=== PATIENT | male | born 1995 | race Caucasian/White ===

== ENCOUNTER 2022-04-30 10:33 | Emergency (ER) | payer OTHER, SELFPAY ==
[2022-04-30 10:36] VITALS: BP 138/75; PULSE 81; RESP 18; TEMP 36.6; O2SAT 98; BMI 29.9
--- NOTE | 2022-04-30 10:47 | ED.GENADULT ---
HPI - General Adult General Chief complaint: Psychiatric Symptoms Stated complaint: Psych eval Time Seen by Provider: 04/30/22 10:47 Source: patient Mode of arrival: ambulatory Limitations: no limitations History of Present Illness HPI narrative: Patient is a 26 year old assigned male at with a history of bipolar disorder presenting to the emergency department today with possible side effects of medication. Patient states that he was hospitalized in [place] and there he had some medication changes. Patient states that since then he has had a tremor and some increased anxiety. Patient denies any dizziness, lightheadedness, abdominal pain, nausea, vomiting, fever, chills, blurry vision, double vision, loss of vision, chest pain, difficulty breathing, shortness of breath, back pain, night sweats, pain with urination, increased urinary frequency, increased urinary urgency, blood in his urine or stool, syncope or a near syncopal episode, recent trauma or falls, bowel incontinence, bladder incontinence, bowel retention, bladder retention, or any other complaints at this time. Onset (ago): day(s) Severity: mild Severity scale (1-10): 2 Relieving factors: none Exacerbating factors: none Associated symptoms: denies other symptoms Treatments prior to arrival: none Related Data Home Medications Medication Instructions Recorded Confirmed divalproex 500 mg tablet,extended 1 tab PO BID 04/30/22 04/30/22 release 24 hr haloperidol 5 mg tablet 1 tab PO BID 04/30/22 04/30/22 olanzapine 10 mg disintegrating 1 tab QAM 04/30/22 04/30/22 tablet olanzapine 20 mg disintegrating 1 tab BEDTIME 04/30/22 04/30/22 tablet Previous Rx's Medication Instructions Recorded lactulose 20 gram/30 mL oral 20 g (30 mL) PO TID #180 mL 04/30/22 solution Allergies Allergy/AdvReac Type Severity Reaction Status Date / Time Unable to Assess Allergy Verified 04/30/22 10:48 Review of Systems Constitutional: Constitutional: Reports no additional constitutional complaints, Denies chills, Denies fever(s) and Denies night sweats Eyes: Eyes: Reports no additional eye complaints, Denies blurry vision, Denies change in vision, Denies diplopia, Denies eye discharge, Denies loss of vision and Denies eye pain ENT: Denies dizziness Cardiovascular: Cardiovascular: Reports no additional cardiovascular complaints, Denies chest pain, Denies lightheadedness, Denies Loss of Consciousness and Denies dyspnea Respiratory: Respiratory: Reports no additional respiratory complaints and Denies dyspnea Gastrointestinal: Gastrointestinal: Reports no additional gastrointestinal complaints, Denies abdominal pain, Denies melena, Denies hematochezia, Denies change in bowel habits and Denies change in stool character Genitourinary: Genitourinary: Reports no additional male genitourinary complaints, Denies hematuria, Denies oliguria, Denies difficulty urinating, Denies dysuria, Denies urinary frequency, Denies urinary hesitancy, Denies urinary incontinence and Denies urinary urgency Musculoskeletal: Musculoskeletal: Reports no additional musculoskeletal complaints, Denies numbness and Denies tingling Neurologic: Denies dizziness, Denies loss of vision, Denies numbness and Denies tingling Psychiatric: Psychiatric: Reports no additional psychiatric complaints and Reports anxiety Endocrine: Endocrine: Reports no additional endocrine complaints Hematologic/Lymphatic: Hematologic/Lymphatic: Reports no additional hematologic/lymphatic complaints Allergic/Immunologic: Allergic/Immunologic: Reports no additional allergic/immunologic complaints [facility] Past Medical History Attestation statement: The following information was validated with the patient. Source: old records reviewed and nursing notes reviewed Social History Social History Advance Directives: No Advance Directives Information Provided: No Guardian: No Physical Exam ED Vital Signs: Vital Signs - 24 hr 04/30/22 10:36 Temperature 98 F Pulse Rate 81 Respiratory Rate 18 Blood Pressure 138/75 Pulse Oximetry 98 Oxygen Delivery Method Room Air BMI result Body Mass Index 29.9 Const General: cooperative, no acute distress, alert and awake Nutritional Appearance: well nourished Orientation/consciousness: patient oriented x3 Limitations: no limitations [facility] Head: Yes normal to inspection and Yes atraumatic Ears: hearing grossly normal bilaterally and external ears normal General nose exam: Normal external nose present, no nasal discharge noted and no epistaxis Face and sinus: Yes normal facial exam, No abrasion and No laceration Mouth: Normal oral and palatal mucosa present, no drooling and no muffled voice Eyes General: appearance normal, both eyes and all related structures Periorbital: periorbital findings normal Eyelids: Yes eyelids normal Conjunctivae: conjunctivae normal Pupils: Equal, round and reactive pupils present EOM: EOMs intact bilaterally Neck Neck: Yes normal visual inspection, Yes full ROM and Yes no lymphadenopathy Chest Chest palpation & inspection: normal inspection of the chest Resp Effort & Inspection: normal respiratory effort and able to speak in complete sentences Auscultation: clear to auscultation bilaterally Cardio Rate: regular rate Rhythm: regular rhythm GI Inspection: Yes normal to inspection Palpation (GI): Soft to palpation, not firm, nontender, no guarding and not rigid Neuro General: patient oriented x3 and moves all extremities Cranial nerves: Yes Equal, round and reactive pupils present Cognition (Neuro): normal cognition Motor exam (neuro): 5/5 motor strength present throughout Sensory Exam: Normal double simultaneous stimulation for sensation Coordination: [id number] test normal Extrem General: Yes normal to inspection, Yes full ROM and Yes capillary refill normal Psych Appearance: grossly normal Mental Status: mental status grossly normal Affect: normal affect Attitude: cooperative Thought process: Normal thought process present Thought content: Normal thought content present Insight: Good insight present (Psych) Medications Administered Discontinued Medications Generic Name Dose Route Start Last Admin Trade Name Jess PRN Reason Stop Dose Admin Lactulose 20 gm 04/30/22 14:47 04/30/22 14:59 Lactulose 20 Gm/30 Ml Solution PO 04/30/22 14:48 20 gm ONCE ONE Administration Medical Decision Making Medical Decision Making [facility] Narrative: Patient is a 26 year old assigned male at with a history of bipolar disorder presenting to the emergency department today with a tremor and increased anxiety. Patient's physical exam was unremarkable. Patient's blood work showed slightly elevated LFTs and ammonia. Psychiatry met with the patient and recommended the patient stop the Depakote, follow up for additional LFTs and medication changes. Psychiatry states the patient will be entering a partial program in the coming days. I explained my physical exam findings as well as all test results to the patient. I answered all questions asked by the patient. I stressed the importance of the patient taking his medication as prescribed. I stressed the importance of the patient following up with his primary care provider. I stressed the importance of the patient returning to the emergency department immediately if his symptoms were to worsen or if he were to develop any dizziness, shortness of breath, difficulty breathing, chest pain, blurry vision, loss of vision, nausea, vomiting, abdominal pain, fever, chills, back pain, or any other complaints. Patient verbalized agreement and understanding with this treatment plan and discharge. Differential Diagnosis Differential Diagnoses: The differential diagnosis associated with the presentation includes anxiety, juanis, bipolar disorder Consult Healthcare Provider Management of the patient was discussed with: Logistics Loss Prevention Manager (spoke with the psychiatrist activities concierge who recommended cessation of depakote, follow up LFTs, and continuined partialization program) Lab Data MDM Lab Attestation statement: I reviewed the patient's lab results. 04/30/22 11:25 04/30/22 11:25 Labs: Lab Results 04/30/22 04/30/22 04/30/22 Range/Units 11:11 11:11 11:11 WBC (4.8-10.8) X10*3/uL RBC (4.60-5.80) X10*6/uL Hgb (14.0-18.0) g/dl Hct (42.0-52.0) % MCV (80.0-98.0) fL MCH (27.0-33.0) pg MCHC (31.0-36.0) g/dl RDW (11.0-16.0) % Plt Count (160-400) X10*3/uL MPV (9.4-12.4) fL Immature Gran % (Auto) (0.0-0.4) % Neut % (Auto) (45-73) % Lymph % (Auto) (20-40) % [place] % (Auto) (2-11) % Eos % (Auto) (0-4) % Baso % (Auto) (0-2) % Lymph # (Auto) (1.2-4.9) X10*3/uL [place] # (Auto) (0.1-1.2) X10*3/uL Eos # (Auto) (0.0-0.4) X10*3/uL Baso # (Auto) (0.0-0.2) X10*3/uL Abs Immat Gran (auto) (0.00-0.03) X10*3/uL Absolute Neuts (auto) (2.0-8.3) x10*3/uL Absolute Nucleated RBC (0.0-0.012) X10*3/uL Nucleated RBC % (auto) (0.0-0.2) /100WBC Sodium (135-145) mmol/L Potassium (3.3-5.1) mmol/L Chloride (96-108) mmol/L Carbon Dioxide (22-29) mmol/L Anion Gap (12-20) BUN (9-16) mg/dL Creatinine (0.5-1.4) mg/dL Estim Creat Clear Calc Estimated GFR Random Glucose (60-115) mg/dL Calcium (8.4-10.2) mg/dL Total Bilirubin (0.0-1.0) mg/dL AST (5-37) U/L ALT (0-40) U/L Alkaline Phosphatase (39-117) U/L Ammonia (13-55) umol/L Total Protein (6.5-8.0) g/dL Albumin (3.5-5.0) g/dL Urine Color Yellow Urine Appearance Clear Urine pH 6.5 (5.0-9.0) Ur Specific [place] 1.020 (1.005-1.025) Urine Protein Negative (Neg-Trace) mg/dL Urine Glucose (UA) Negative (Negative) mg/dL Urine Ketones Negative (Negative) mg/dL Urine Blood Negative (Negative) Urine Nitrite Negative (Negative) Ur Leukocyte Esterase Negative (Negative) Salicylates (15-30) mg/dL Urine Opiates Screen Not Detected (Not Detect) Urine Fentanyl Screen Not Detected (Not Detect) Acetaminophen (<30) mcg/mL Ur Barbiturates Screen Not Detected (Not Detect) Ur Phencyclidine Scrn Not Detected (Not Detect) Ur Amphetamines Screen Not Detected (Not Detect) U Benzodiazepines Scrn Not Detected (Not Detect) Urine Cocaine Screen Not Detected (Not Detect) U Marijuana (THC) Screen Not Detected (Not Detect) Ethyl Alcohol mg/dL COVID-19 (BESSIE) Negative (Negative) COVID-19 Clin Com See Note 04/30/22 04/30/22 04/30/22 Range/Units 11:25 11:25 13:59 WBC 7.9 (4.8-10.8) X10*3/uL RBC 5.04 (4.60-5.80) X10*6/uL Hgb 14.6 (14.0-18.0) g/dl Hct 42.7 (42.0-52.0) % MCV 84.7 (80.0-98.0) fL MCH 29.0 (27.0-33.0) pg MCHC 34.2 (31.0-36.0) g/dl RDW 12.6 (11.0-16.0) % Plt Count 209 (160-400) X10*3/uL MPV 8.9 L (9.4-12.4) fL Immature Gran % (Auto) 2.5 H (0.0-0.4) % Neut % (Auto) 57.8 (45-73) % Lymph % (Auto) 23.8 (20-40) % [place] % (Auto) 9.8 (2-11) % Eos % (Auto) 5.2 H (0-4) % Baso % (Auto) 0.9 (0-2) % Lymph # (Auto) 1.9 (1.2-4.9) X10*3/uL [place] # (Auto) 0.8 (0.1-1.2) X10*3/uL Eos # (Auto) 0.4 (0.0-0.4) X10*3/uL Baso # (Auto) 0.1 (0.0-0.2) X10*3/uL Abs Immat Gran (auto) 0.20 H (0.00-0.03) X10*3/uL Absolute Neuts (auto) 4.6 (2.0-8.3) x10*3/uL Absolute Nucleated RBC 0.000 (0.0-0.012) X10*3/uL Nucleated RBC % (auto) 0.0 (0.0-0.2) /100WBC Sodium 140 (135-145) mmol/L Potassium 4.3 (3.3-5.1) mmol/L Chloride 105 (96-108) mmol/L Carbon Dioxide 28 (22-29) mmol/L Anion Gap 11 L (12-20) BUN 17 H (9-16) mg/dL Creatinine 0.86 (0.5-1.4) mg/dL Estim Creat Clear Calc 176.5 Estimated GFR > 60 Random Glucose 94 (60-115) mg/dL Calcium 9.3 (8.4-10.2) mg/dL Total Bilirubin 0.7 (0.0-1.0) mg/dL AST 71 H (5-37) U/L ALT 172 H (0-40) U/L Alkaline Phosphatase 92 (39-117) U/L Ammonia 68 H (13-55) umol/L Total Protein 7.5 (6.5-8.0) g/dL Albumin 4.2 (3.5-5.0) g/dL Urine Color Urine Appearance Urine pH (5.0-9.0) Ur Specific [place] (1.005-1.025) Urine Protein (Neg-Trace) mg/dL Urine Glucose (UA) (Negative) mg/dL Urine Ketones (Negative) mg/dL Urine Blood (Negative) Urine Nitrite (Negative) Ur Leukocyte Esterase (Negative) Salicylates < 5.0 L (15-30) mg/dL Urine Opiates Screen (Not Detect) Urine Fentanyl Screen (Not Detect) Acetaminophen < 17 (<30) mcg/mL Ur Barbiturates Screen (Not Detect) Ur Phencyclidine Scrn (Not Detect) Ur Amphetamines Screen (Not Detect) U Benzodiazepines Scrn (Not Detect) Urine Cocaine Screen (Not Detect) U Marijuana (THC) Screen (Not Detect) Ethyl Alcohol < 10 mg/dL COVID-19 (BESSIE) (Negative) COVID-19 Clin Com Discharge Plan Discharge Clinical Impression: Bipolar 1 disorder, depressed, mild Patient Disposition: Home, Self-Care Instructions: Bipolar Disorder (ED) Additional Instructions: Follow up with your primary care provider and psychiatrist. Return to the emergency department immediately if your symptoms worsen or if you develop any dizziness, shortness of breath, difficulty breathing, chest pain, blurry vision, loss of vision, nausea, vomiting, abdominal pain, fever, chills, back pain, or any other complaints. Prescriptions: New lactulose 20 gram/30 mL solution 20 g PO TID Qty: 180 0RF No Action haloperidol 5 mg tablet 1 tab PO BID olanzapine 20 mg tablet,disintegrating 1 tab BEDTIME divalproex 500 mg tablet extended release 24 hr 1 tab PO BID olanzapine 10 mg tablet,disintegrating 1 tab QAM Referrals: [facility] [Provider Group] (Call to establish and follow up with a primary care provider. If you already have a primary care provider, please follow up with them. ) [facility] [place] [Provider Group] (Call to establish and follow up with a primary care provider. If you already have a primary care provider, please follow up with them. ) [facility] [Provider Group] (Call to establish and follow up with a primary care provider. If you already have a primary care provider, please follow up with them. ) Interventions: [place]-Suicide Risk Severity Scale Last Done: 04/30/22 13:37 ED Discharge Assessment Last Done: 04/30/22 15:19 Print Language: Malaysian
[2022-04-30 11:23] LABS: Appearance Urine Clear; Color Urine Yellow; Glucose Urine UA Negative (Negative); Leukocyte Esterase Urine Negative (Negative); Nitrite Urine Negative (Negative); PH 6.5 (5.0-9.0); Urine Blood Negative (Negative); Urine Ketones Negative (Negative); Urine Protein Negative (Neg-Trace)
[2022-04-30 11:28] LABS: MANUAL DIFF FLAG NO
[2022-04-30 11:30] LABS: Amphetamine Screen Urine Not Detected (Not Detect); Barbiturates, Urine Not Detected (Not Detect); Benzodiazepines Screen Urine Not Detected (Not Detect); Cannabinoid Screen Urine Not Detected (Not Detect); Cocaine Screen Urine Not Detected (Not Detect); Fentanyl, urine Not Detected (Not Detect); Opiate Screen Urine Not Detected (Not Detect); Phencyclidine Screen Urine Not Detected (Not Detect)
[2022-04-30 11:33] LABS: Basophils Absolute Auto 0.1 X10*3/uL (0.0-0.2); Basophils Percent Auto 0.9 % (0-2); Eosinophils Absolute Auto 0.4 X10*3/uL (0.0-0.4); Eosinophils Percent Auto 5.2 % (0-4); Hematocrit 42.7 % (42.0-52.0); Hemoglobin 14.6 g/dl (14.0-18.0); Imm Gran Pct Auto 2.5 % (0.0-0.4); Lymphocytes Absolute Auto 1.9 X10*3/uL (1.2-4.9); Lymphocytes Percent Auto 23.8 % (20-40); Mean Corpuscular HGB Conc 34.2 g/dl (31.0-36.0); Mean Corpuscular Volume 84.7 fL (80.0-98.0); Mean Platelet Volume 8.9 fL (9.4-12.4); Monocytes Absolute Auto 0.8 X10*3/uL (0.1-1.2); Monocytes Percent Auto 9.8 % (2-11); Neutrophils Absolute Auto 4.6 x10*3/uL (2.0-8.3); Neutrophils Percent Auto 57.8 % (45-73); Platelet Count 209 X10*3/uL (160-400); Red Blood Count 5.04 X10*6/uL (4.60-5.80); Red Cell Distribution Width 12.6 % (11.0-16.0); White Blood Count 7.9 X10*3/uL (4.8-10.8)
[2022-04-30 11:44] LABS: Anion Gap 11 (12-20)
[2022-04-30 11:49] LABS: COVID-19 Test Negative (Negative); IDNOW Serial# 55D5AD1C
[2022-04-30 11:53] LABS: Acetaminophen LAB < 17 mcg/mL (<30); Alanine Aminotransferase 172 U/L (0-40); Albumin Level 4.2 g/dL (3.5-5.0); Alkaline Phosphatase 92 U/L (39-117); Aspartate Amino Transferase 71 U/L (5-37); Bilirubin Total 0.7 mg/dL (0.0-1.0); Calcium 9.3 mg/dL (8.4-10.2); Carbon Dioxide 28 mmol/L (22-29); Chloride 105 mmol/L (96-108); Creatinine Clr Calc Pharmacy 176.5; Estimated Glomerular Filt Rate > 60; Ethanol < 10 mg/dL; Glucose Random 94 mg/dL (60-115); Potassium 4.3 mmol/L (3.3-5.1); Salicylate < 5.0 mg/dL (15-30); Sodium 140 mmol/L (135-145); Total Protein 7.5 g/dL (6.5-8.0)
[2022-04-30 12:39] LABS: Blood Urea Nitrogen 17 mg/dL (9-16)
--- NOTE | 2022-04-30 13:26 | P.CNPS_ITS ---
History of Present Illness Date of Service: 04/30/2022 Chief Complaint: Psych eval Reason for Consult: S/E medications Requesting physician: Nicol Wong Discussed with referring provider: Yes Sources of Information: patient interviewed, chart reviewed and crisis/core team assessment reviewed HPI Narrative: Mr. Scales is a 26 year-old male with hx of Bipolar type 1 Disorder. Pt had two episodes of juanis in last 6 months. One back in February, hospitalized at [facility] (discharged on depakote, haldol and olanzapine). He had medication changes by his OP provider Dr. Stevens, discontinuing depakote, haldol and olanzapine and starting vraylar. Pt had another manic episode in [place] this past March and was restarted on combination of depakote, haldol and olanzapine. In the ED- utox is negative. Pt presents to ED reporting overall shakiness, over sedation during the day. He has been taking depakote 500mg po BID, haldol 5mg po BID, olanzapine 10mg po daily and 20mg po qhs. Preliminary labs- shows elevated LFTs- AST 71, ALT 172, ammonia levels elevated at 68. Depakote level not obtained as pt had morning dose and it wouldn't be trough level. Renal function wnl. CBC with diff wnl. Pt presents as calm. No overt labile mood. No SI/HI. No overt signs of p sychosis. Mother is present during interview. She reports her main concern at this moment is possible side effects including over sedation along with overall shakiness- which is visible during my interview with pt. No overt cogwheel noted or rigidity. Past Psychiatric History: Inpatient: [facility] 01/2022; [facility]/[place], 03/2022 OP: looking for new psychiatrist but has been seeing Dr. Leiva. Past medication trials: depakote, haldol, lamictal, vraylar, olanzapine. Medical Evaluation Reviewed: Yes Diagnostics Vital Signs (24Hr): Vital Signs - 24 hr 04/30/22 10:36 Temperature 98 F Pulse Rate 81 Respiratory Rate 18 Blood Pressure 138/75 Pulse Oximetry 98 Oxygen Delivery Method Room Air BMI result Body Mass Index 29.9 Labs 04/30/22 11:25 04/30/22 11:25 Labs: Laboratory Results - last 48 hr 04/30/22 04/30/22 04/30/22 11:11 11:11 11:11 WBC RBC Hgb Hct MCV MCH MCHC RDW Plt Count MPV Immature Gran % (Auto) Neut % (Auto) Lymph % (Auto) [place] % (Auto) Eos % (Auto) Baso % (Auto) Lymph # (Auto) [place] # (Auto) Eos # (Auto) Baso # (Auto) Abs Immat Gran (auto) Absolute Neuts (auto) Absolute Nucleated RBC Nucleated RBC % (auto) Sodium Potassium Chloride Carbon Dioxide Anion Gap BUN Creatinine Estim Creat Clear Calc Estimated GFR Random Glucose Calcium Total Bilirubin AST ALT Alkaline Phosphatase Total Protein Albumin Urine Color Yellow Urine Appearance Clear Urine pH 6.5 Ur Specific [place] 1.020 Urine Protein Negative Urine Glucose (UA) Negative Urine Ketones Negative Urine Blood Negative Urine Nitrite Negative Ur Leukocyte Esterase Negative Salicylates Urine Opiates Screen Not Detected Urine Fentanyl Screen Not Detected Acetaminophen Ur Barbiturates Screen Not Detected Ur Phencyclidine Scrn Not Detected Ur Amphetamines Screen Not Detected U Benzodiazepines Scrn Not Detected Urine Cocaine Screen Not Detected U Marijuana (THC) Screen Not Detected Ethyl Alcohol COVID-19 (BESSIE) Negative COVID-19 Clin Com See Note 04/30/22 04/30/22 11:25 11:25 WBC 7.9 RBC 5.04 Hgb 14.6 Hct 42.7 MCV 84.7 MCH 29.0 MCHC 34.2 RDW 12.6 Plt Count 209 MPV 8.9 L Immature Gran % (Auto) 2.5 H Neut % (Auto) 57.8 Lymph % (Auto) 23.8 [place] % (Auto) 9.8 Eos % (Auto) 5.2 H Baso % (Auto) 0.9 Lymph # (Auto) 1.9 [place] # (Auto) 0.8 Eos # (Auto) 0.4 Baso # (Auto) 0.1 Abs Immat Gran (auto) 0.20 H Absolute Neuts (auto) 4.6 Absolute Nucleated RBC 0.000 Nucleated RBC % (auto) 0.0 Sodium 140 Potassium 4.3 Chloride 105 Carbon Dioxide 28 Anion Gap 11 L BUN 17 H Creatinine 0.86 Estim Creat Clear Calc 176.5 Estimated GFR > 60 Random Glucose 94 Calcium 9.3 Total Bilirubin 0.7 AST 71 H ALT 172 H Alkaline Phosphatase 92 Total Protein 7.5 Albumin 4.2 Urine Color Urine Appearance Urine pH Ur Specific [place] Urine Protein Urine Glucose (UA) Urine Ketones Urine Blood Urine Nitrite Ur Leukocyte Esterase Salicylates < 5.0 L Urine Opiates Screen Urine Fentanyl Screen Acetaminophen < 17 Ur Barbiturates Screen Ur Phencyclidine Scrn Ur Amphetamines Screen U Benzodiazepines Scrn Urine Cocaine Screen U Marijuana (THC) Screen Ethyl Alcohol < 10 COVID-19 (BESSIE) COVID-19 Clin Com Mental Status Exam Mental Status Exam Narrative: Appearance: wearing hospital gown, fair hygiene, in NAD Behavior: cooperative Speech: clear, normal rate/rhythm/volume, spontaneous TP: linear TC: no overt psychosis, worried about side effects, wanting to continue OP psych tx. Mood: sleepy Affect: congruent SI: none HI: none VH/AH: none Delusions: none Insight/judgment: fair x 2. Memory/cog: alert, oriented x 3. grossly intact to conversational testing. Medications Allergies Allergies Allergy/AdvReac Type Severity Reaction Status Date / Time Unable to Assess Allergy Verified 04/30/22 10:48 Assessment & Plan Assessment & Plan (1) Bipolar 1 disorder, depressed, mild: Status: Acute Code(s): F31.31 - Bipolar disorder, current episode depressed, mild Plan Mr. Scales is a 26 year-old male with hx of Bipolar Disorder type 1, with first manic episode in 2019. He has has had two other manic episodes one in Feb 20[facility], and another one in [place] 03/2022 after depakote/haldol and olanzapine abruptly discontinued and started on vraylar and buspar. Pt was brought to ED by mother due to excessive sedation, overall shakiness (visible, slight jerk like movement), no cogwheel or rigidity noted on exam. Preliminary work up show elevated LFT, pending ammonia levels. Suspect shakiness related to depakote in absence of cogwheel or parkinsonian symptoms to suggest more likely related to antipsychotic. Elevation of LFT suspect related to both depakote and olanzapine, could be more so related to depakote but both medications are extensively metabolized by liver. overall sedation related to combination of all medications but again mostly olanzapine and depakote. PLAN 1. No imminent harm to self or others or acute psychiatric symptoms to recommend inpatient psychiatric level of care. Pt can discharge back home with mother. 2. This process description writer discussed with both pt and mother, considering different mood stabilizer such as lithium rather than depakote given hyperammonemia and elev ated LFT's. Will start lactulose 20gm po TID. Recommend to stop depakote, continue olanzapine and haldol for now. Consider starting [place] while at [facility]. Understandably, mother expressed concern of d/c of depakote as he recently had episode of juanis. Definitely plan to start lithium sooner rather than later. 3. Recheck ammonia level tomorrow 05/01/2022 morning, along recheck with LFTS. 4. Pt to be referred to [facility] for further psychiatric treatment. Total time managing care of this patient today _30 minutes.
[2022-04-30 14:15] LABS: Ammonia 68 umol/L (13-55)
[2022-04-30] MEDS: Lactulose 20 GM/30 ML SOLUTION PO (14:59)
== END 2022-04-30 15:20 | disposition home or self-care (01) ==
PROVIDERS: Physician Assistant Medical; Social Worker; Emergency Provider Student in an Organized Health Care Education/Training Program
DX: F31.31 Bipolar disorder, current episode depressed, mild (principal); F41.9 Anxiety disorder, unspecified; R25.1 Tremor, unspecified; Z20.822 Contact with and (suspected) exposure to COVID-19; Z79.899 Other long term (current) drug therapy
CPT/HCPCS: 36415; 80053; 80143; 80179; 80307; 81003; 82077; 82140; 85025; 87635; 99284; S9485

== ENCOUNTER 2022-05-01 11:12 | Outpatient (REF) | payer OTHER, SELFPAY ==
[2022-05-01 11:32] LABS: Ammonia 46 umol/L (13-55)
--- NOTE | 2022-05-01 12:28 | PM.PSYCN ---
History of Present Illness Date of Service: 05/02/2022 Chief Complaint: F31.31 Reason for Consult: f/u Discussed with referring provider: Yes Sources of Information: patient interviewed, chart reviewed and crisis/core team assessment reviewed HPI Narrative: Mr. Scales is a 26 year-old male with hx of Bipolar type 1 Disorder. Pt seen yesterday in ED- c/o of excessive sedation, overall shakiness. In ED yesterday- ammonia elevated, as well as LFts. Recheck of ammonia today back to normal. Pt continues to report excessive sedation, with olanzapine 10mg po daily and 20mg po qhs and haldol 5mg po BID. He reports some mild improvement in shakiness but continues to have it. He does seem some degree of akathisia- most likely secondary to haldol. Pt [place] Both pt and his mother expressed concern in terms of medication changes triggering another manic episode. We discussed at length having good mood stabilizer such as lithium. At this point concern of recurrent hyper ammonia and elevated LFT with residential use depakote. Pt in agreement to start lithium. Will decrease haldol from 5mg po BID to 5mg po qhs. Decrease olanzapine from 10mg po daily, 20mg po qhs to 20mg po qhs. Currently, pt presents as linear, no signs of labile mood or psychosis or delusions. He endorses excessive sedation, falling asleep if he sits down. No SI/HI. 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 Past Psychiatric History: [facility]patient[facility]; [facility], 03/2022 OP: looking for new psychiatrist but has been seeing Dr. Leiva. Past medication trials: depakote, haldol, lamictal, vraylar, olanzapine. Diagnostics Labs Labs: Laboratory Results - last 48 hr 05/01/22 11:21 Ammonia 46 Medications Allergies Allergies Allergy/AdvReac Type Severity Reaction Status Date / Time Unable to Assess Allergy Verified 04/30/22 10:48 Assessment & Plan Assessment & Plan (1) Bipolar 1 disorder, depressed, mild: Status: Acute Code(s): F31.31 - Bipolar disorder, current episode depressed, mild Plan PLAN 1. Ammonia now wnl. Can stop lactulose. LFTs continue elevated, monitor in about one week. If continued to be elevated, check hep panel, but keep in mind olanzapine Continues to experience shakiness- which may be related to haldol. also, continues to present as overly sedated on 2 antipsychotics, haldol and olanzapine. Decrease haldol to 5mg po qhs, olanzapine to 20mg po qhs. Pt currently stable psychiatrically speaking and in no need for inpatient level of care. Total time managing care of this patient today ____ minutes.
[2022-05-01 14:32] LABS: Alanine Aminotransferase 171 U/L (0-40); Albumin Level 4.5 g/dL (3.5-5.0); Alkaline Phosphatase 86 U/L (39-117); Aspartate Amino Transferase 77 U/L (5-37); Bilirubin Direct 0.3 mg/dL (0.0-0.5); Bilirubin Total 1.1 mg/dL (0.0-1.0); Thyroid Stimulating Hormone 2.35 uIU/mL (0.32-4.0); Total Protein 7.9 g/dL (6.5-8.0)
== END 2022-05-01 11:13 | disposition home or self-care (01) ==
LOC: HO.LAB 11:12
PROVIDERS: PCP Internal Medicine; Visit Provider Social Worker
DX: F31.31 Bipolar disorder, current episode depressed, mild (principal)
CPT/HCPCS: 36415; 80076; 82140; 84443

== ENCOUNTER 2022-05-09 07:45 | Outpatient (REF) | payer OTHER, SELFPAY ==
[2022-05-09 08:36] LABS: Lithium 0.47 mmol/L (0.60-1.20)
[2022-05-09 08:46] LABS: Alanine Aminotransferase 98 U/L (0-40); Albumin Level 4.2 g/dL (3.5-5.0); Alkaline Phosphatase 88 U/L (39-117); Anion Gap 10 (12-20); Aspartate Amino Transferase 50 U/L (5-37); Bilirubin Total 0.9 mg/dL (0.0-1.0); Blood Urea Nitrogen 16 mg/dL (9-16); Calcium 9.5 mg/dL (8.4-10.2); Carbon Dioxide 29 mmol/L (22-29); Chloride 105 mmol/L (96-108); Estimated Glomerular Filt Rate > 60; Glucose Random 86 mg/dL (60-115); Potassium 4.2 mmol/L (3.3-5.1); Sodium 140 mmol/L (135-145); Total Protein 7.5 g/dL (6.5-8.0)
[2022-05-09 09:08] LABS: HBS Num1 1.29 mIU/mL (0-7.99); HBc Num1 0.09 S/CO (0.00-0.79); HBsAGNum1 0.45 S/CO (0.00-0.99); Hepatitis A Antibody IgM 0.14 Index (0-0.79); Hepatitis B Core Antibody Nonreactive (Nonreactive); Hepatitis B Surface Antigen Negative (Negative); ~HepC Num1 0.14 S/CO (0.00-0.79); ~Hepatitis A Antibody IgM Nonreactive (Nonreactive); ~Hepatitis B Surface Antibody NONREACTIVE (Nonreactive); ~Hepatitis C Antibody Nonreactive (Nonreactive)
== END 2022-05-09 07:46 | disposition home or self-care (01) ==
LOC: HO.LAB 07:45
PROVIDERS: PCP Internal Medicine; Visit Provider Nurse Practitioner Psychiatric/Mental Health
DX: F31.9 Bipolar disorder, unspecified (principal); Z79.899 Other long term (current) drug therapy
CPT/HCPCS: 36415; 80053; 80178; 86704; 86706; 86709; 86803; 87340

== ENCOUNTER 2022-05-11 07:57 | Outpatient (REF) | payer OTHER, SELFPAY ==
[2022-05-11 09:15] LABS: Alanine Aminotransferase 84 U/L (0-40); Albumin Level 4.1 g/dL (3.5-5.0); Alkaline Phosphatase 84 U/L (39-117); Anion Gap 11 (12-20); Aspartate Amino Transferase 52 U/L (5-37); Bilirubin Total 0.9 mg/dL (0.0-1.0); Blood Urea Nitrogen 15 mg/dL (9-16); Calcium 9.4 mg/dL (8.4-10.2); Carbon Dioxide 28 mmol/L (22-29); Chloride 104 mmol/L (96-108); Estimated Glomerular Filt Rate > 60; Glucose Random 104 mg/dL (60-115); Sodium 139 mmol/L (135-145); Total Protein 7.6 g/dL (6.5-8.0)
[2022-05-11 09:19] LABS: Free T4 (Free Thyroxine) 1.04 ng/dL (0.71-1.85); Thyroid Stimulating Hormone 5.48 uIU/mL (0.32-4.0)
== END 2022-05-11 07:58 | disposition home or self-care (01) ==
LOC: HO.LAB 07:57
PROVIDERS: PCP Internal Medicine; Visit Provider Nurse Practitioner Psychiatric/Mental Health
DX: F31.9 Bipolar disorder, unspecified (principal)
CPT/HCPCS: 36415; 80053; 80178; 84439; 84443

== ENCOUNTER 2022-05-15 08:15 | Outpatient (REF) | payer OTHER, SELFPAY ==
[2022-05-15 10:17] LABS: Lithium 0.47 mmol/L (0.60-1.20)
[2022-05-15 10:38] LABS: Free T4 (Free Thyroxine) 0.89 ng/dL (0.71-1.85); Thyroid Stimulating Hormone 4.23 uIU/mL (0.32-4.0)
== END 2022-05-15 08:16 | disposition home or self-care (01) ==
LOC: HO.LAB 08:15
PROVIDERS: PCP Internal Medicine; Visit Provider Nurse Practitioner Psychiatric/Mental Health
DX: F31.9 Bipolar disorder, unspecified (principal); Z79.899 Other long term (current) drug therapy
CPT/HCPCS: 36415; 80178; 84439; 84443

== ENCOUNTER 2022-05-15 13:15 | Outpatient (RCR) | payer OTHER, SELFPAY ==
[2022-05-04 09:44] VITALS: BMI 30.6
[2022-05-04 10:47] VITALS: BP 126/62; PULSE 68; TEMP 37.1
[2022-05-04 15:04] LABS: Amphetamine Screen Urine Not Detected (Not Detect); Barbiturates, Urine Not Detected (Not Detect); Benzodiazepines Screen Urine Not Detected (Not Detect); Cannabinoid Screen Urine Not Detected (Not Detect); Cocaine Screen Urine Not Detected (Not Detect); Fentanyl, urine Not Detected (Not Detect); Opiate Screen Urine Not Detected (Not Detect); Phencyclidine Screen Urine Not Detected (Not Detect)
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
--- NOTE | 2022-05-09 11:10 | HO.PHPPROGNO ---
Subjective Subjective Date of Service: 05/09/22 Reason For Visit: bipolar I Medical Problems Affecting Mental Status: No Interim History: Describes mood as ?good ?. Denies any mood lability, either depression or hypomania/juanis at this time. Feels stable. No SI/HI, no AH/VH, no delusional thought. Less tremulous with decrease of haloperidol, although is still present. Concerned overweight gain since started lithium and olanzapine. Would like to be discharged fairly soon, wants to go back to work. Medication Compliance: Yes Side effects from medications: Yes (tremor, weight gain) Attending Groups: Yes Review of Systems Acute medical concerns: No Medical Review of Systems: changed Review of Systems Constitutional: Reports weight gain (25 lb within past month.) Diagnostics Vital Signs (24Hr): BMI result Body Mass Index 30.6 Assessment & Plan Assessment & Plan (1) Bipolar I disorder: Status: Acute Code(s): F31.9 - Bipolar disorder, unspecified Assessment and Plan: Describes mood as ?good ?. Stable affect. Patient wants to discharge early next week, and return to work. Denies any mood lability, either depression or hypomania/juanis at this time. No SI/HI, no AH/VH, no delusional thought. Less tremulous with decrease of haloperidol, although is still present. Discussed stopping haldol at this time, as he also has olanzapine currently. He was in agreement with this. Concerned overweight gain since started lithium and olanzapine. Reviewed lab results, labs completed earlier today. [place]iells level 0.47, AST, ALT trending down. Patient states his mother has been helping with medications, and he has been taking lithium as prescribed. Discussed in detail side effects of both olanzapine and lithium. Also expressed concern due to patient having 2 recent inpatient hospitalizations due to juanis. Discussed possible options going forward, as patient will be working with a provider in community upon discharge from here. The patient has already trialed lamotrigine, Latuda, and Depakote. Discussed other potential mood stabilizers, and their side effect profiles, such as quetiapine, vraylar, caplyta. Plan 1. Continue with current [facility] plan of care. 2. Discontinue Haldol. 3. Continue with current lithium and olanzapine dose at this time. 4. Repeat labs in 2 days. 5. Follow-up as per protocol. Patient educated on: diagnosis, medication risk/benefits and therapeutic strategies Informed Consent: understands Reason for contiued partial hosp. stay Substantial Risk for: inability to function, rapid decompensation and med/psych decompensation Certification I certify that partial hospital treatment is medically necessary due to the symptoms and problems resulting from the patient's mental illness and the failure to treat the patient at the partial hospital level of care would likely result in the patient requiring inpatient psychiatric care which could not be prevented at a less intensive level of care. Total time managing care of this patient today _20___ minutes. Discharge Plan Discharge Attending provider: Raymond Bansal Medications: Discontinued haloperidol 5 mg tablet 2.5 tab PO BEDTIME Label Comments: Decreased to 1/2 tab per Jessica Lou CNP AT [facility]. No Action lithium carbonate 600 mg Capsule 600 mg PO BID olanzapine 20 mg tablet,disintegrating 1 tab BEDTIME
--- NOTE | 2022-05-10 15:54 | HO.PHPIOP ---
The client was reviewed in treatment team and his case was opened.
--- NOTE | 2022-05-15 11:27 | P.PNPSP_ITS ---
Subjective Subjective Date of Service: 05/15/22 Reason For Visit: bipolar I Medical Problems Affecting Mental Status: No Interim History: Pt describes mood as ok,good . No SI , no safety concerns. Reports good sleep 8 hrs per night. Looking for a new job. Denies any manic/hypomanic symptoms, denies any depression symptoms. Feels stable for discharge from [facility] today Medication Compliance: Yes Side effects from medications: No Attending Groups: Yes Review of Systems Acute medical concerns: No Medical Review of Systems: unchanged Review of Systems Review of Systems Yes all other systems are reviewed and are negative Constitutional: Reports no additional constitutional complaints Mental Status Exam Mental Status Exam Narrative: NAD. Patient Appearance: Well Grooomed and Appropriate Patient Orientation: Person, Place, Time and Situation Level of Consciousness: Appropriate and Alert Patient Behavior: Appropriate, Cooperative and Good Eye Contact Mood Description: Relaxed Affect Description: Appropriate Patient Cognition Impaired: No Ability to Follow Directions: Excellent Speech Pattern: Clear Memory Description: Intact Hallucinations: None Delusions: Not Present Thought Process: Intact, Goal Oriented and Linear Thought Content: positive for Intact, positive for Goal Oriented and positive for Linear Judgement: Good Diagnostics Vital Signs (24Hr): BMI result Body Mass Index 30.6 Assessment & Plan Assessment & Plan (1) Bipolar I disorder: Status: Acute Code(s): F31.9 - Bipolar disorder, unspecified Assessment and Plan: Pt describes mood as ok,good . No SI , no safety concerns. Reports good sleep 8 hrs per night. Looking for a new job. 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 Current position is part-time, states he needs to have a full-time position. Feels stable for discharge from [facility] today. No evidence of any type of juanis/hypomania/depression present during encounter. Reviewed labs with pt , discussed current litium level, level continues to be subtherapeutic. Reviewed THS levels, which have fluctuated. Lab worked to be faxed over to PCP and new psychiatric provider, whom he will meet on 06/19/22. Medication refills sent in. Plan 1. Patient appears stable for discharge from [facility] at this time. 2. One-month refill sent to pharmacy for olanzapine, lithium. 3. Patient discharge instructions reviewed. 4. Patient to follow up with outpatient providers going forward. Patient educated on: diagnosis, medication risk/benefits and therapeutic strategies Informed Consent: understands Reason for contiued partial hosp. stay Substantial Risk for: stable for discharge Certification I certify that partial hospital treatment is medically necessary due to the symptoms and problems resulting from the patient's mental illness and the failure to treat the patient at the partial hospital level of care would likely result in the patient requiring inpatient psychiatric care which could not be prevented at a less intensive level of care. Total time managing care of this patient today __20__ minutes. Discharge Plan Discharge Attending provider: Raymond Bansal Additional Instructions: Maryjane Roberts APRN 06/19/21 11am Medications: Discontinued haloperidol 5 mg tablet 2.5 tab PO BEDTIME Label Comments: Decreased to 1/2 tab per Jessica Lou CNP AT [facility]. No Action lithium carbonate 600 mg Capsule 600 mg PO BID olanzapine 20 mg tablet,disintegrating 1 tab BEDTIME Stand Alone Forms: Patient Portal Discharge page Patient Education: Bipolar Disorder (DC)
--- NOTE | 2022-05-16 07:57 | HO.PHPIOP ---
A message was left with the clients therapist Janeth FAM re clients dc from the program .
== END 2022-05-15 23:59 | disposition home or self-care (01) ==
LOC: HO.PHPA 13:15
PROVIDERS: Nurse Practitioner Psychiatric/Mental Health; Visit Provider Psychiatry & Neurology Psychiatry
DX: F31.9 Bipolar disorder, unspecified (principal); Z79.899 Other long term (current) drug therapy
CPT/HCPCS: 80307; 90791; 90853